=== PATIENT | male | born 1990 ===

== ENCOUNTER 2021-12-16 17:59 | Emergency (ER) | payer SELFPAY ==
[2021-12-16] MEDS ORDERED: MORPHINE 4 MG/1 ML INJ IV ONE (18:40)
[2021-12-16] MEDS ORDERED: ONDANSETRON 4 MG/2 ML INJ IV ONE ×2 (18:49→22:09)
--- NOTE | 2021-12-16 18:49 | Emergency Department Report ---
ED General Adult HPI - General Chief complaint: Fall Stated complaint: ACCIDENT/FELL Time Seen by Provider: 12/16/21 18:34 Source: patient, family Mode of arrival: Ambulatory Limitations: Language Barrier - History of Present Illness Initial comments: Patient is a 31-year-old male who presents status post fall. History is limited due to language barrier history obtained via per diem interpreter patient was working on a roof that he tripped and fell down. He is complaining of head pain back pain and pain in his chest. Patient states the pain is severe nothing makes it better and moving makes it worse Severity scale (0 -10): 10 - Related Data Allergies Allergy/AdvReac Type Severity Reaction Status Date / Time No Known Allergies Allergy Unverified 12/16/21 18:57 ED Review of Systems ROS: Stated complaint: ACCIDENT/FELL Other details as noted in HPI Constitutional: denies: chills, fever Eyes: denies: eye pain, eye discharge, vision change ENT: denies: ear pain, throat pain Respiratory: denies: cough, shortness of breath, wheezing Cardiovascular: denies: chest pain, palpitations Endocrine: no symptoms reported Gastrointestinal: denies: abdominal pain, nausea, diarrhea Genitourinary: denies: urgency, dysuria Musculoskeletal: back pain. denies: joint swelling, arthralgia Skin: denies: rash, lesions Neurological: denies: headache, weakness, paresthesias Psychiatric: denies: anxiety, depression Hematological/Lymphatic: denies: easy bleeding, easy bruising ED Past Medical Hx - Past Medical History Previous Medical History?: No - Surgical History Past Surgical History?: No ED Physical Exam - General Limitations: Language Barrier General appearance: alert, in no apparent distress - Head Head exam: Present: atraumatic, normocephalic - Eye Eye exam: Present: normal appearance - ENT ENT exam: Present: mucous membranes moist - Neck Neck exam: Present: normal inspection - Respiratory Respiratory exam: Present: normal lung sounds bilaterally. Absent: respiratory distress - Cardiovascular Cardiovascular Exam: Present: regular rate, normal rhythm, other (Chest wall tenderness). Absent: systolic murmur, diastolic murmur, rubs, gallop - GI/Abdominal GI/Abdominal exam: Present: soft, normal bowel sounds - Rectal Rectal exam: Present: deferred - Extremities Exam Extremities exam: Present: normal inspection - Back Exam Back exam: Present: tenderness (Cervical spine tenderness) - Neurological Exam Neurological exam: Present: alert, oriented X3 - Psychiatric Psychiatric exam: Present: normal affect, normal mood - Skin Skin exam: Present: warm, dry, intact, normal color. Absent: rash ED Course Vital Signs 12/16/21 12/16/21 18:20 21:03 Temperature 98.4 F 97.8 F Pulse Rate 82 62 Respiratory 20 18 Rate Blood Pressure 143/83 120/50 [Right] O2 Sat by Pulse 99 99 Oximetry - Consultations Consultation #1: 12/16/21 20:[address] Duenas trauma surgeon at [facility] and patient will need to be transferred over for further trauma evaluation ED Medical Decision Making - Lab Data Result diagrams: 12/16/21 18:57 12/16/21 18:57 Lab Results 12/16/21 12/16/21 Range/Units 18:57 18:57 WBC 9.6 (4.5-11.0) K/mm3 RBC 4.78 (3.65-5.03) M/mm3 Hgb 15.1 (11.8-15.2) gm/dl Hct 44.6 (35.5-45.6) % MCV 93 (84-94) fl MCH 32 (28-32) pg MCHC 34 (32-34) % RDW 13.4 (13.2-15.2) % Plt Count 245 (140-440) K/mm3 Lymph % (Auto) 20.3 (13.4-35.0) % [place] % (Auto) 5.2 (0.0-7.3) % Eos % (Auto) 0.6 (0.0-4.3) % Baso % (Auto) 0.4 (0.0-1.8) % Lymph # (Auto) 2.0 (1.2-5.4) K/mm3 [place] # (Auto) 0.5 (0.0-0.8) K/mm3 Eos # (Auto) 0.1 (0.0-0.4) K/mm3 Baso # (Auto) 0.0 (0.0-0.1) K/mm3 Seg Neutrophils % 73.5 H (40.0-70.0) % Seg Neutrophils # 7.1 (1.8-7.7) K/mm3 Sodium 140 (137-145) mmol/L Potassium 3.5 L (3.6-5.0) mmol/L Chloride 101.1 (98-107) mmol/L Carbon Dioxide 25 (22-30) mmol/L Anion Gap 17 mmol/L BUN 16 (9-20) mg/dL Creatinine 0.7 L (0.8-1.3) mg/dL Estimated GFR > 60 ml/min BUN/Creatinine Ratio 23 % Glucose 103 H (75-100) mg/dL Calcium 9.3 (8.4-10.2) mg/dL - Medical Decision Making Chief medical diagnosis: Subarachnoid hemorrhage Differential medical diagnosis: Pneumothorax, chest wall contusion, hemopneumothorax We will get CT scan of head CT neck CT thoracic lumbar chest abdomen pelvis scans I will get blood work and IV pain medication Critical Care Time: Yes Critical care time in (mins) excluding proc time.: 120 Critical care attestation.: If time is entered above; I have spent that time in minutes in the direct care of this critically ill patient, excluding procedure time. ED Disposition Clinical Impression: Chest wall pain Fall Qualifiers: Encounter type: initial encounter Qualified Code(s): W19.XXXA - Unspecified fall, initial encounter Traumatic subarachnoid hemorrhage Qualifiers: Encounter type: initial encounter Loss of consciousness presence/duration: with LOC of 30 min or less Qualified Code(s): S06.6X1A - Traumatic subarachnoid hemorrhage with loss of consciousness of 30 minutes or less, initial encounter Disposition: [facility] Is pt being admited?: No Does the pt Need Aspirin: No Condition: Stable Instructions: Nonspecific Chest Pain, Adult Referrals: PRIMARY CARE, [Primary Care Provider] - 3-5 Days
[2021-12-16] MEDS ORDERED: MORPHINE 2 MG/1 ML INJ ONE (18:52)
[2021-12-16 19:11] LABS: Basophils % (Auto) 0.4 % (0.0-1.8); Eosinophils # (Auto) 0.1 K/mm3 (0.0-0.4); Eosinophils % (Auto) 0.6 % (0.0-4.3); Hematocrit 44.6 % (35.5-45.6); Hemoglobin 15.1 gm/dl (11.8-15.2); Lymphocytes % (Auto) 20.3 % (13.4-35.0); Mean Corpuscular HGB Conc 34 % (32-34); Mean Corpuscular Volume 93 fl (84-94); Monocytes # (Auto) 0.5 K/mm3 (0.0-0.8); Monocytes % (Auto) 5.2 % (0.0-7.3); Platelet Count 245 K/mm3 (140-440); Red Blood Count 4.78 M/mm3 (3.65-5.03); Red Cell Distribution Width 13.4 % (13.2-15.2)
--- NOTE | 2021-12-16 19:27 | Cat Scan Report ---
CT head/brain wo con INDICATION / CLINICAL INFORMATION: 31 years Male; trauma. TECHNIQUE: Routine CT head without contrast. All CT scans at this location are performed using CT dos e reduction for ALARA by means of automated exposure control. COMPARISON: None. FINDINGS: BRAIN / INTRACRANIAL CONTENTS: Subtle subarachnoid hemorrhage seen along the sulci adjacent to the le ft falx cerebri, and the frontal lobe region. Findings extend anterior to the corpus callosum region in the cingulate sulcus on the left, as well. Otherwise, no acute hemorrhage, mass effect, midline shift, hydrocephalus, or acute, large territori al infarct. No signs of significant atrophy or chronic infarct. No significant white matter abnormali ty seen. CRANIOCERVICAL JUNCTION: No significant abnormality. ORBITS: No significant abnormality of visualized orbits. SINUSES / MASTOIDS: Visualized paranasal sinuses and mastoid air cells are essentially clear. ADDITIONAL FINDINGS: None. IMPRESSION: 1. Subtle subarachnoid hemorrhage as described above. Close follow-up is recommended to ensure resolu tion of this finding. 2. Otherwise, no focal mass, hydrocephalus, or large territorial infarct seen. CRITICAL RESULT: Exam Completed (ADMITTING OFFICER/CDT): 12/16/2021 6:08 PM Exam Reviewed (ADMITTING OFFICER/CDT): 6:18 PM Time of Communication (ADMITTING OFFICER/CDT): 6:21 PM Licensed Practitioner Receiving Report: Dr. Ash Information confirmed: Yes. Signer Name: Danilo Ovalle MD, III Signed: 12/16/2021 7:23 PM Workstation Name: [id number]
[2021-12-16 19:32] LABS: Blood Urea Nitrogen 16 mg/dL (9-20); Calcium 9.3 mg/dL (8.4-10.2); Hemolysis Index 12
[2021-12-16 19:33] LABS: BUN/Creatinine Ratio 23
--- NOTE | 2021-12-16 20:00 | Cat Scan Report ---
CT cervical spine wo con INDICATION / CLINICAL INFORMATION: 31 years Male; fall from 10 feet. TECHNIQUE: Axial CT images of the cervical spine were obtained. Sagittal and coronal reformatted images were pr oduced. All CT scans at this location are performed using CT dose reduction for ALARA by means of aut omated exposure control. COMPARISON: None available. FINDINGS: POST-SURGICAL CHANGES: None. ALIGNMENT: No significant abnormality. VERTEBRAE: No signs of fracture. Vertebral bodies are grossly normal in height throughout. No signif icant facet joint disease or osseous foraminal narrowing appreciated. INTRAVERTEBRAL DISCS: Small disc protrusions at various levels. No significant canal narrowing. PARASPINAL SOFT TISSUES: No significant abnormality. ADDITIONAL FINDINGS: None. IMPRESSION: 1. No signs of acute bony trauma to the cervical spine. Signer Name: Danilo Ovalle MD, III Signed: 12/16/2021 7:55 PM Workstation Name: [id number]
--- NOTE | 2021-12-16 20:02 | XRay Report ---
XR chest 1V ap INDICATION / CLINICAL INFORMATION: trauma. COMPARISON: None available. FINDINGS: SUPPORT DEVICES: None. HEART /PULMONARY VASCULATURE: No significant abnormality. LUNGS / PLEURA: No focal airspace consolidation. No sizable pleural effusion. No pneumothorax. IMPRESSION: 1. No acute findings. Signer Name: Joe Garber MD Signed: 12/16/2021 7:57 PM Workstation Name: [id number]
--- NOTE | 2021-12-16 20:08 | Cat Scan Report ---
CT CHEST WITH CONTRAST INDICATION / CLINICAL INFORMATION: back pain after trauma. TECHNIQUE: Axial CT images were obtained through the chest after 100 cc of Omnipaque [address] sca ns at this location are performed using CT dose reduction for ALARA by means of automated exposure co ntrol. COMPARISON: None available. FINDINGS: THORACIC AORTA: Thoracic aorta is normal in caliber. No evidence of dissection. CORONARY ARTERY CALCIFICATION: No significant calcification. HEART: No significant abnormality. MEDIASTINUM / MOSHE: No significant thoracic lymphadenopathy. LUNGS/PLEURA: No acute airspace disease. No pleural effusion or pneumothorax. ADDITIONAL CHEST FINDINGS: None. UPPER ABDOMEN: Detailed separately SKELETAL SYSTEM: No acute abnormality. IMPRESSION: No acute abnormality of the chest. Signer Name: Joe Garber MD Signed: 12/16/2021 8:03 PM Workstation Name: [id number]
--- NOTE | 2021-12-16 20:10 | Cat Scan Report ---
EXAMINATION: CT thoracic spine wo con. HISTORY: back pain after trauma TECHNIQUE: Axial CT examination of the thoracic spine was obtained, with sagittal and coronal reforma tions. All CT scans at this location are performed using CT dose reduction for ALARA by means of auto mated exposure control. COMPARISON: None available. FINDINGS: Alignment: Normal. No evidence of acute subluxation. Geographic Bone Lesion: None present. Fracture: No acute fracture. Epidural Hematoma: Not present. Paravertebral Soft Tissues: Unremarkable. Other: Visualized lungs are clear. IMPRESSION: No acute osseous findings in the thoracic spine. Signer Name: Joe Garber MD Signed: 12/16/2021 8:06 PM Workstation Name: [id number]
--- NOTE | 2021-12-16 20:13 | Cat Scan Report ---
CT abdomen pelvis w con INDICATION / CLINICAL INFORMATION: trauma after falling. TECHNIQUE: Axial CT images were obtained through the abdomen and pelvis after 100 cc of Omnipaque 300 IV contrast. Coronal and sagittal images were reformatted at the workstation. All CT scans at this [facility] are performed using CT dose reduction for ALARA by means of automated exposure control. COMPARISON: None available. FINDINGS: LOWER CHEST: No significant abnormality LIVER: No significant abnormality GALLBLADDER/BILIARY TREE: No significant abnormality PANCREAS: No significant abnormality SPLEEN: No significant abnormality ADRENALS: No significant abnormality RIGHT KIDNEY / URETER: No significant abnormality LEFT KIDNEY / URETER: No significant abnormality URINARY BLADDER: No significant abnormality REPRODUCTIVE ORGANS: No significant abnormality STOMACH / BOWEL: Small bowel is normal in caliber. The colon is unremarkable. The appendix is normal in caliber. LYMPH NODES: No significant adenopathy. VASCULATURE: No significant abnormality. OTHER: No free air, free fluid, or focal fluid collection is identified. SKELETAL SYSTEM: No acute osseous findings. IMPRESSION: No acute abnormality of the abdomen or pelvis. Signer Name: Joe Garber MD Signed: 12/16/2021 8:08 PM Workstation Name: [id number]
--- NOTE | 2021-12-16 20:14 | Cat Scan Report ---
EXAMINATION: CT lumbar spine wo con. HISTORY: trauma TECHNIQUE: Axial CT examination of the lumbar spine was obtained, with sagittal and coronal reformati ons. All CT scans at this location are performed using CT dose reduction for ALARA by means of automa nithin exposure control. COMPARISON: None available. FINDINGS: Alignment: Normal. No acute subluxation. Fracture: No acute fracture. Soft Tissues/Retroperitoneal Structures: Unremarkable Other: None IMPRESSION: No acute traumatic abnormality of the lumbar spine. Signer Name: Joe Garber MD Signed: 12/16/2021 8:10 PM Workstation Name: [id number]
[2021-12-16] MEDS ORDERED: fentaNYL 100 MCG/2 ML INJ IV ONE (21:29)
[2021-12-16] MEDS ORDERED: SODIUM CHLORIDE 0.9% 1000 ML 1,000 ML IV ONE (22:00)
[2021-12-16] MEDS ORDERED: ONDANSETRON 4 MG/2 ML INJ ONE (22:10)
[2021-12-16] MEDS ORDERED: ATROPINE 0.1% (1 MG/10 ML) CARDIAC SYRINGE IV ONE (22:15)
[2021-12-16] MEDS ORDERED: ATROPINE 0.1% (1 MG/10 ML) CARDIAC SYRINGE ONE (22:17)
[2021-12-16] MEDS ORDERED: SODIUM CHLORIDE 0.9% 1000 ML 1,000 ML ONE (22:21)
[2021-12-16 23:21] VITALS: BP 105/69
== END 2021-12-16 22:23 | disposition short-term general hospital (02) ==
LOC: ED 17:59
DX: S06.6X9A Traumatic subarachnoid hemorrhage with loss of consciousness of unspecified duration, initial encounter (principal); R07.89 Other chest pain; W19.XXXA Unspecified fall, initial encounter; Y93.89 Activity, other specified; Y92.89 Other specified places as the place of occurrence of the external cause; Y99.8 Other external cause status
CPT/HCPCS: 36415; 70450; 71045; 71260; 72125; 72128; 72131; 74177; 80048; 85025; 96361; 96374; 96375; 96376; 99291; 99292; J0461; J2270; J2405; J3010; J7030; Q9967; 99285; Q0162